=== PATIENT | male | born 1935 | race Caucasian/White ===

== ENCOUNTER → 2016-09-25 | Outpatient (CLI) | payer MEDICARE ==
--- NOTE | 2016-09-25 10:17 | REP ---
Clinical: Renal cyst. Comparison: 09/21/2014. Findings: Lung bases clear. Visualized heart and pericardium normal. Liver, spleen, pancreas, gallbladder, bilateral adrenal glands are normal for noncontrast evaluation. The kidneys demonstrate bilateral nonobstructing nephroliths measuring 2 mm in the right kidney and 5 mm in the left kidney as well as bilateral hypodensities which remain stable and most compatible with cysts measuring up to 2.3 cm in the right kidney and 2.2 cm in the left kidney. The enteric system is without obstruction or acute inflammatory process. Pelvis demonstrates an enlarged prostate gland extending into the base of the bladder with mass effect similar to prior examination as well as bladder stones measuring up to 11 mm. No ascites. No adenopathy. No mass lesion. Atherosclerotic changes of the aorta without aneurysm. Musculoskeletal structures demonstrate age-related degenerative changes. Impression: 1. Bilateral nonobstructing renal calculi and bilateral renal hypodensities which may reflect cysts. Consider follow-up ultrasound examination or pre/postcontrast CT if necessary. 2. Enlarged prostate gland with extension into the base of the bladder and associated mass effect and 11 mm bladder stone. Signed by Jv Armendariz MD 09/25/2016 10:08 A
== END ==
LOC: M RAD 09:08
PROVIDERS: ATTEND Urology
DX: N28.1 Cyst of kidney, acquired (principal); N40.0 Benign prostatic hyperplasia without lower urinary tract symptoms

== ENCOUNTER → 2016-11-06 | Outpatient (CLI) | payer MEDICARE ==
[~2016-11-06] MED LIST: ASPI1TAB PO; ATEN25TA PO; CALC1TAB11 PO; CIPR500T3 PO; FISH1000 PO; FLOM5CAP PO; FLOV50AE; GLUCPOW24 PO; METF500T13 PO; MIRA3350 PO; MULT1TAB10 PO; NITR4TASL SL; PRAV40TA2 PO; PRESCAP6 PO; THERSOL2 OP; TYLE650T35 PO; VALS1TAB46 PO; VITA100067 PO; VITA100072 PO; VITA100T96 PO; VITA500T PO
--- NOTE | 2016-11-06 17:58 | REP ---
CHEST, TWO VIEWS: COMPARISON: 10/06/2014 There is no evidence of acute infiltrate. No pleural effusion is seen. The heart is normal in size. The mediastinal silhouette is unremarkable. The visualized osseous structures are intact. There is tortuosity of the thoracic aorta. There are mild degenerative changes of the spine. IMPRESSION: No acute pulmonary disease. Signed by Lauri Holden MD 11/07/2016 01:29 P
== END ==
LOC: M RAD 15:32
PROVIDERS: ATTEND Nurse Practitioner Adult Health
DX: Z01.810 Encounter for preprocedural cardiovascular examination (principal); N21.0 Calculus in bladder; G47.33 Obstructive sleep apnea (adult) (pediatric); R97.20 Elevated prostate specific antigen [PSA]; N28.1 Cyst of kidney, acquired; R31.0 Gross hematuria; N40.0 Benign prostatic hyperplasia without lower urinary tract symptoms

== ENCOUNTER → 2016-11-06 | Outpatient (REF) | payer MEDICARE ==
[2016-11-06 20:18] LABS: INR 0.88
== END ==
LOC: M LAB REF 17:00
PROVIDERS: ATTEND Nurse Practitioner Adult Health
DX: Z01.810 Encounter for preprocedural cardiovascular examination (principal); N21.0 Calculus in bladder; G47.33 Obstructive sleep apnea (adult) (pediatric); N28.1 Cyst of kidney, acquired; R97.20 Elevated prostate specific antigen [PSA]; R31.0 Gross hematuria; N40.0 Benign prostatic hyperplasia without lower urinary tract symptoms

== ENCOUNTER 2016-11-20 05:59 | Day surgery (SDC) | payer MEDICARE ==
[~2016-11-20] VITALS: Ht 180.3 cm; Wt 86.6 kg
[~2016-11-20 05:59] MED LIST changes: -CIPR500T3 PO; -FLOV50AE; -TYLE650T35 PO
[2016-11-20] MEDS ORDERED: LIDOCAINE 1% MDV 20ML VIAL SC ONE (06:15)
[2016-11-20] MEDS ORDERED: LR 1,000 ML IV ONE (06:15)
[2016-11-20] MEDS ORDERED: FLOV50AE (07:11)
[2016-11-20] MEDS ORDERED: LIDOCAINE 2% INJ 100 MG/5 ML SDV (FOR ANES.) As Ordered ONE (07:19)
[2016-11-20] MEDS ORDERED: PROPOFOL 200 MG/20 ML VIAL As Ordered ONE (07:19)
[2016-11-20] MEDS ORDERED: ROCURONIUM BROMIDE 50 MG/5 ML VIAL/SYRINGE As Ordered ONE (07:19)
[2016-11-20] MEDS ORDERED: MIDAZOLAM INJ 2 MG/2 ML VIAL (J2250) As Ordered ONE (07:20)
[2016-11-20] MEDS ORDERED: fentaNYL 250 MCG/5 ML INJECTION (J3010) As Ordered ONE (07:20)
[2016-11-20] MEDS ORDERED: CONRAY-60 60% 50ML VIAL (Q9961) As Ordered ONE (07:23)
[2016-11-20] MEDS ORDERED: ePHEDrine SULFATE 25 MG/5 ML(5MG/ML) SYRINGE As Ordered ONE (08:03)
[2016-11-20] MEDS ORDERED: ONDANSETRON 4MG/2ML VIAL (J2405) As Ordered ONE (08:14)
[2016-11-20] MEDS ORDERED: HYDROmorphone HCL 2 MG/ML 1ML VIAL (J1170) As Ordered ONE (10:00)
[2016-11-20] MEDS ORDERED: fentaNYL 100 MCG/2 ML INJECTION (J3010) IV PRN (11:00)
[2016-11-20] MEDS ORDERED: ONDANSETRON 4MG/2ML VIAL (J2405) IV PRN (11:00)
[2016-11-20] MEDS ORDERED: PERCOCET 5MG/325MG TAB PO PRN (11:00)
[2016-11-20] MEDS ORDERED: METOCLOPRAMIDE INJ 10MG/2ML VIAL (J2765) IV PRN (11:00)
[2016-11-20] MEDS ORDERED: MEPERIDINE INJ 25 MG/ML VIAL (J2175) IV PRN (11:00)
[2016-11-20] MEDS ORDERED: LR 1,000 ML IV SCH (11:00)
[2016-11-20] MEDS ORDERED: ACETAMINOPHEN 650MG ER TAB (TYLENOL ARTHRITIS) PO PRN (11:15)
[2016-11-20 12:20] VITALS: BP 127/61
[2016-11-20 12:50] VITALS: BP 122/64
[2016-11-20] MEDS ORDERED: TYLE650T35 PO (13:40)
[2016-11-20] MEDS ORDERED: CIPR500T3 PO (13:40)
[2016-11-20 13:50] VITALS: BP 138/69
[2016-11-20 14:50] VITALS: BP 121/57
[2016-11-20 15:50] VITALS: BP 130/71
[2016-11-20] MEDS ORDERED: CIPROFLOXACIN 500 MG TAB PO SCH (18:00)
--- NOTE | 2016-11-22 17:28 | RO ---
DATE OF PROCEDURE: 11/20/2016 PREOPERATIVE DIAGNOSIS: Bladder stone and benign prostatic enlargement. POSTOPERATIVE DIAGNOSIS: Bladder stone and benign prostatic enlargement. FINDINGS: 5 cm bladder stone and benign prostatic enlargement middle lobe and lateral lobes touching and obstructing the bladder neck. PROCEDURE: Cystoscopy, plus Holmium laser cystolitholapaxy plus transurethral resection of prostate, bipolar transurethral resection of the prostate (TURP). SURGEON: Dr. Mathew Wells MILLINERY SALESPERSON: None. ANESTHESIA: General. COMPLICATIONS: None. ESTIMATED BLOOD LOSS: N/A. HISTORY OF PRESENT ILLNESS: This is an 81-year-old male patient that has severe lower urinary tract symptoms (LUTS). We did a cystoscopy that showed a bladder stone and also trilobar prostatic enlargement. Patient takes medical therapy, alpha blockers, Flomax and this has not helped his lower urinary tract symptoms. For this reason he has consented for a cystoscopy plus Holmium laser cystolitholapaxy, plus TURP. PROCEDURE DESCRIPTION: In a patient under general anesthesia in supine modified low lithotomy position after prepping and draping the area of concern, which included the entire genitalia and abdomen, we introduced a #21 Salvadorean cystoscope with a 30 degrees lens under videoendoscopic guidance. The fossa navicularis, penile urethra, bulbar urethra and membranous urethra were totally normal. The prostatic urethra showed had lateral lobes touching, and a middle lobe small obstructing the trigone. Both ureteral orifices we could see, in the trigone we could see a 5 cm stone. We then proceeded to pass a 1000 micron probe Holmium laser and pulverized the stone at a power of 0.6 and a rate of 20. We then, with an Ellik evacuator, evacuated all the stone pieces. The stone pieces were sent for permanent pathology analysis and biochemical analysis. We then proceeded to switch the cystoscope for a resectoscope and under videoendoscopic guidance, under normal saline we did a bipolar standard TURP. We resected the middle lobe completely out to the capsule and then the lateral lobe on the right and on the left. We secured hemostasis with electro Bovie cautery and then I took all the chips of the prostate with an Ellik evacuator. We then proceeded to actually take the resectoscope out and once we cleared the hemostasis, we placed a Tierney #20-Salvadorean three-way, inflated the balloon to 20 mL and placed it to gravity and placed irrigation. PLAN: The patient will pass as same day surgery. If the urine is clear, we will stop the irrigation and plug the three-way, and the patient will go with a Tierney catheter to gravity. He will followup in 5 days for a voiding trial. He should stop the Flomax and continue taking antibiotics and pain medication of Tylenol. There were no complications. Pathology was sent as chips of prostate.
== END 2016-11-20 17:05 | disposition home or self-care (01) ==
LOC: M SDC 05:59 → M MS5PR 12:38 → M SDC 17:05
PROVIDERS: ATTEND Urology
DX: N21.0 Calculus in bladder (principal); N40.0 Benign prostatic hyperplasia without lower urinary tract symptoms; E11.9 Type 2 diabetes mellitus without complications; I49.9 Cardiac arrhythmia, unspecified; I10 Essential (primary) hypertension; E78.00 Pure hypercholesterolemia, unspecified; R06.83 Snoring; G47.33 Obstructive sleep apnea (adult) (pediatric); I25.10 Atherosclerotic heart disease of native coronary artery without angina pectoris; H35.30 Unspecified macular degeneration; L71.9 Rosacea, unspecified; M54.81 Occipital neuralgia; E55.9 Vitamin D deficiency, unspecified; M85.80 Other specified disorders of bone density and structure, unspecified site; E29.1 Testicular hypofunction; Z88.8 Allergy status to other drugs, medicaments and biological substances; Z79.899 Other long term (current) drug therapy; Z79.82 Long term (current) use of aspirin; Z79.84 Long term (current) use of oral hypoglycemic drugs; Z96.1 Presence of intraocular lens
CPT/HCPCS: 36415; 52318; 52601; 82360; 86850; 86900; 86901; 88300; 88305; J0690; J1170; J2250; J2405; J3010

== ENCOUNTER → 2016-12-05 | Outpatient (REF) | payer MEDICARE ==
[~2016-12-05] MED LIST changes: +CIPR500T3 PO; +FLOV50AE; +TYLE650T35 PO
== END ==
LOC: M SMT 15:40
PROVIDERS: ATTEND Nurse Practitioner Women's Health
DX: R31.0 Gross hematuria (principal)

== ENCOUNTER → 2016-12-30 | Outpatient (REF) | payer MEDICARE | LOC: M SMT 12:58 | PROVIDERS: ATTEND Urology | DX: N40.0 Benign prostatic hyperplasia without lower urinary tract symptoms (principal) | CPT/HCPCS: 51798; 81001; 87086; G0463 ==

== ENCOUNTER → 2017-01-27 | Outpatient (REF) | payer MEDICARE | LOC: M SMT 13:13 | PROVIDERS: ATTEND Urology | DX: N40.0 Benign prostatic hyperplasia without lower urinary tract symptoms (principal) ==

== ENCOUNTER → 2017-04-21 | Outpatient (CLI) | payer MEDICARE | LOC: M SLEEP 19:45 | DX: G47.33 Obstructive sleep apnea (adult) (pediatric) (principal); G47.61 Periodic limb movement disorder | CPT/HCPCS: 95811 ==

== ENCOUNTER → 2017-05-01 | Outpatient (CLI) | payer MEDICARE ==
[2017-05-01 20:14] LABS: AMORPHOUS SEDIMENT SMALL (NEGATIVE); APPEARANCE, URINE HAZY (CLEAR); BACTERIA, URINE AUTO NEGATIVE (NEGATIVE); BILIRUBIN, URINE AUTO NEGATIVE (NEGATIVE); BLOOD, URINE BLOOD NEGATIVE (NEGATIVE); COLOR, URINE YELLOW (YELLOW); GLUCOSE, URINE (UA) AUTO NEGATIVE (NEGATIVE); KETONE, URINE AUTO NEGATIVE (NEGATIVE); LEUKOCYTE ESTERASE, URINE AUTO NEGATIVE (NEGATIVE); NITRITE, URINE AUTO NEGATIVE (NEGATIVE); PROTEIN, URINE AUTO NEGATIVE (NEGATIVE); RBC, URINE AUTO 1 /HPF (0-3); SPECIFIC GRAVITY URINE AUTO 1.012 (1.002-1.035); SQUAMOUS EPITHELIAL CELL UR AU 0 /HPF (0-6); UROBILINOGEN, URINE AUTO 0.2 mg/dL (0.0-2.0); WBC, URINE AUTO 0 /HPF (0-3)
== END ==
LOC: M SMT 15:02
DX: R39.9 Unspecified symptoms and signs involving the genitourinary system (principal)
CPT/HCPCS: 36415

== ENCOUNTER → 2017-11-12 | Outpatient (CLI) | payer MEDICARE ==
[2017-11-15 00:06] LABS: PSA TOTAL 0.9 ng/mL (0.0-4.0)
== END ==
LOC: M SMT 10:01
DX: R97.20 Elevated prostate specific antigen [PSA] (principal)
CPT/HCPCS: 84154

== ENCOUNTER → 2018-05-06 | Outpatient (CLI) | payer MEDICARE ==
[~2018-05-06] MED LIST changes: +ASPI81TA85 PO; +AVASINJ IV; +E-Z-GAS II EFFERVESCENT PACKET (SODIUM BICARB./CITRIC ACID/SIMETHICONE) As Ordered ONE; +E-Z-HD 98% w/w 340GM SUSP BTL As Ordered ONE; +E-Z-PAQUE 96% w/w SUSP 176GM BTL As Ordered ONE; +FLOM0.4C39 PO; -FLOM5CAP PO; +METO1TAB32 PO; +REST0.05 OU
--- NOTE | 2018-05-06 18:44 | REP ---
Esophagram The procedure was performed under the direct supervision of Dr. Hernandez. The images were reviewed with Dr. Hernandez. A single view PA chest x-ray is submitted as a acute care physical therapist film. The superior mediastinal structures are midline. The heart size is within normal limits. The lungs are clear. Liquid barium and gas producing granules were given in the erect position as well as liquid barium in the prone oblique positions in order to perform a double contrast esophagram examination. The oral and pharyngeal stages of deglutition are unremarkable. There are small bilateral pharyngoceles. Esophageal transport is prompt and efficient and there is no esophagitis, stricture or mucosal ring. There is a sliding type hiatal hernia. Gastroesophageal reflux is not demonstrated on this examination. Impression: 1. Small bilateral pharyngoceles. 2. There is a sliding type hiatal hernia. 1 minute of fluoro time was utilized for this procedure. Reviewed by CHRISTIE Friend 05/06/2018 04:43 P Electronically Signed by Forrest Hernandez MD 05/06/2018 06:35 P
== END ==
LOC: M RAD 08:06
PROVIDERS: ATTEND Otolaryngology
DX: K21.9 Gastro-esophageal reflux disease without esophagitis (principal); K44.9 Diaphragmatic hernia without obstruction or gangrene; J39.2 Other diseases of pharynx